=== PATIENT | female | born 1985 | race African-American/Black ===

== ENCOUNTER 2017-10-26 09:25 | Emergency (ER) | payer BC ==
--- NOTE | 2017-10-26 09:50 | ED ---
Lower Extremity - HPI Summary HPI Summary: Patient here with left ankle and foot pain, swelling and tingling of her lateral toes on this foot since last night. Reports she was playing basketball with her last night and as she returned to the ground from jumping up, she twisted her Lt foot and ankle. She's been elevating and icing with some relief of the ankle pain however she still has persistent foot pain with toe tingling. Denies numbness or weakness. No gross deformity to report. She reports history of injury in this lower extremity in the past however she does not recall the details (fracture of a bone somewhere). Admits she was wearing inappropriate sneakers to playing basketball - poor ankle support and high soft squishy sole of shoe. She declines any pain medication at this time. She is currently menstruating. - History of Current Complaint Chief Complaint: EDExtremityLower Stated Complaint: LT FOOT SWELLING Time Seen by Provider: 10/26/17 09:34 Hx Obtained From: Patient Pain Intensity: 4 - Allergies/Home Medications Allergies/Adverse Reactions: Allergies Allergy/AdvReac Type Severity Reaction Status Date / Time No Known Allergies Allergy Verified 06/09/16 12:12 PMH/Surg Hx/FS Hx/Imm Hx Previously Healthy: Yes Endocrine/Hematology History: Reports: Hx Thyroid Disease GI History: Reports: Hx Ulcer - Immunization History Date of Tetanus Vaccine: 09/10 Date of Influenza Vaccine: N Infectious Disease History: No Infectious Disease History: Denies: Traveled Outside the [place] in Last 30 Days - Family History Known Family History: Positive: Unknown, Other - denies fhx of gallbladder diseases - Social History Lives: With Family Alcohol Use: None Hx Substance Use: No Substance Use Type: Reports: None Hx Tobacco Use: No Smoking Status (MU): Never Smoked Tobacco Have You Smoked in the Last Year: No Review of Systems Constitutional: Negative Positive: no symptoms reported Positive: Arthralgia, Myalgia, Edema Skin: Negative Positive: Paresthesia. Negative: Weakness, Numbness Psychological: Normal All Other Systems Reviewed And Are Negative: Yes Physical Exam Triage Information Reviewed: Yes Vital Signs On Initial Exam: Initial Vitals Temp Pulse Resp BP Pulse Ox 98.9 F 59 18 113/70 99 10/26/17 09:28 10/26/17 09:28 10/26/17 09:28 10/26/17 09:28 10/26/17 09:28 Vital Signs Reviewed: Yes Appearance: Positive: Well-Appearing, No Pain Distress, Well-Nourished Skin: Positive: Warm, Skin Color Reflects Adequate Perfusion, Dry - no skin changes Eyes: Positive: Normal ENT: Positive: Hearing grossly normal Respiratory/Lung Sounds: Positive: Breath Sounds Present Cardiovascular: Positive: Pulses are Symmetrical in both Upper and Lower Extremities Musculoskeletal: Positive: Strength/ROM Intact - moving toes and ankle but is painful, Pain @ - pt reports most of pain is over dorsal foot - TTP here - no 5th MT tenderness; malleoli are NTTP however anterior ankle mortise if TTP; edema mild in comparison but subtly present along lateral aspect of dorsal foot Neurological: Positive: Sensory/Motor Intact - full sensation with palpation of toes effected by tingling, Alert, Oriented to Person Place, Time, CN Intact II- III Psychiatric: Positive: Normal Diagnostics - Vital Signs Vital Signs Temp Pulse Resp BP Pulse Ox 10/26/17 09:28 98.9 F 59 18 113/70 99 - Laboratory Lab Statement: Any lab studies that have been ordered have been reviewed, and results considered in the medical decision making process. Lower Extremity Course/Dx - Course Course Of Treatment: Patient's left ankle and foot x-rays are without acute findings. Suspect patient has strained dorsiflexion tendons and possibly sprained ligaments in the ankle and foot w/o deformity (no splint required). Advised rest, ice, compression with Frank wrap, elevation. She may also take ibuprofen and/or acetaminophen when necessary for pain. Provided with crutches to avoid weightbearing and advance as tolerated. She may follow-up with her PCP in 1-2 weeks if symptoms persist. If danger signs or symptoms present to return to the ED. - Diagnoses Provider Diagnoses: Left ankle sprain, Sprain of left foot Discharge - Discharge Plan Condition: Stable Disposition: HOME Patient Education Materials: Ankle Sprain (ED), Foot Sprain (ED), Crutch Instructions (ED) Forms: *Work Release Referrals: Denia Wilkinson MD [Primary Care Provider] - Additional Instructions: Rest, ice, compress with Frank wrap, elevate Avoid weightbearing by using crutches - you may advance weight-bearing as tolerated May take ibuprofen and/or acetaminophen as needed for pain - take with food Follow-up with PCP in one to 2 weeks if her cyst. *if he developed numbness weakness discoloration of skin acute swelling fevers, return to ED.
--- NOTE | 2017-10-26 10:24 | RAD ---
HISTORY: Left foot and ankle pain, trauma COMPARISONS: None VIEWS: 6, Frontal, lateral, and oblique views of the left foot and left ankle FINDINGS: BONE DENSITY: Normal. BONES: There is no displaced fracture. JOINTS: There is no arthropathy. ALIGNMENT: There is no dislocation. SOFT TISSUES: Unremarkable. OTHER FINDINGS: None. IMPRESSION: NO ACUTE OSSEOUS INJURY THE LEFT FOOT OR LEFT ANKLE. IF SYMPTOMS PERSIST, RECOMMEND REPEAT IMAGING.
[2017-10-26 11:24] VITALS: BP 96/57
== END 2017-10-26 11:05 | disposition home or self-care (01) ==
LOC: ED 09:25
DX: S93.402A Sprain of unspecified ligament of left ankle, initial encounter (principal); S93.602A Unspecified sprain of left foot, initial encounter; X50.1XXA Overexertion from prolonged static or awkward postures, initial encounter; Y93.67 Activity, basketball; Y92.9 Unspecified place or not applicable
CPT/HCPCS: 99282

== ENCOUNTER 2018-01-07 09:14 | Emergency (ER) | payer BC ==
--- NOTE | 2018-01-07 09:38 | ED ---
HPI Chest Pain - HPI Summary HPI Summary: 32-year-old female presents with chest discomfort today. 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 She states that she felt little bit dizzy. She states she felt a little bit tightness in her chest and felt like her heart was racing. She then developed SOB. She states she felt very sweaty and felt some tingling in her hands. She also had a tightness in her throat. She denies any rash. She denies any new products or taking anything she could be allergic too. She said in her chest is was a tightness and not a but that is normal for her. This has never happened before. She is nonsmoker. She denies any family history of heart disease. Currently she denies any pain she states she just feels weak. - History of Current Complaint Chief Complaint: EDChestPainROMI Time Seen by Provider: 01/07/18 09:19 Pain Intensity: 0 - Allergy/Home Medications Allergies/Adverse Reactions: Allergies Allergy/AdvReac Type Severity Reaction Status Date / Time No Known Allergies Allergy Verified 01/07/18 09:22 Home Medications: Home Medications Multivitamins/Minerals TAB* [Theragran/minerals TAB*] 1 tab PO DAILY 01/07/18 [ History Confirmed 01/07/18] PMH/Surg Hx/FS Hx/Imm Hx Endocrine/Hematology History: Reports: Hx Thyroid Disease Respiratory History: Denies: Hx Asthma GI History: Reports: Hx Ulcer - Immunization History Date of Tetanus Vaccine: 09/10 Date of Influenza Vaccine: N Infectious Disease History: Yes Infectious Disease History: Denies: Traveled Outside the [place] in Last 30 Days - Family History Known Family History: Positive: Unknown, Other - denies fhx of gallbladder diseases Negative: Cardiac Disease - Social History Alcohol Use: None Hx Substance Use: No Substance Use Type: Reports: None Hx Tobacco Use: No Smoking Status (MU): Never Smoked Tobacco Have You Smoked in the Last Year: No Review of Systems Negative: Fever Positive: Chest Pain Positive: Shortness Of Breath. Negative: Cough Positive: Nausea. Negative: Abdominal Pain Positive: Weakness All Other Systems Reviewed And Are Negative: Yes Physical Exam Triage Information Reviewed: Yes Vital Signs On Initial Exam: Initial Vitals Temp Pulse Resp BP Pulse Ox 98 F 63 69 103/62 99 01/07/18 09:20 01/07/18 09:20 01/07/18 09:20 01/07/18 09:20 01/07/18 09:20 Vital Signs Reviewed: Yes Appearance: Positive: Well-Appearing Skin: Positive: Warm, Dry Head/Face: Positive: Normal Head/Face Inspection Eyes: Positive: Normal, EOMI, RAY, Conjunctiva Clear ENT: Positive: Normal ENT inspection, Pharynx normal, TMs normal Respiratory/Lung Sounds: Positive: Clear to Auscultation, Breath Sounds Present Cardiovascular: Positive: Normal, RRR Abdomen Description: Positive: Nontender, Soft Bowel Sounds: Positive: Present Musculoskeletal: Positive: Normal Neurological: Positive: Normal Psychiatric: Positive: Anxious Diagnostics - Vital Signs Vital Signs Temp Pulse Resp BP Pulse Ox 01/07/18 09:23 97.6 F 57 15 85/23 100 01/07/18 09:20 98 F 63 69 103/62 99 - Laboratory Result Diagrams: 01/07/18 09:57 01/07/18 09:57 Lab Statement: Any lab studies that have been ordered have been reviewed, and results considered in the medical decision making process. - EKG No standard instances Cardiac Rate: Bradycardia EKG Rhythm: Sinus Bradycardia EKG Interpretation: sinus bradycardia EKG Comparison: No Significant Change Chest Pain Course/Dx - Course Course Of Treatment: 32-year-old female presents with chest discomfort today. 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 She states that she felt little bit dizzy. She states she felt a little bit tightness in her chest and felt like her heart was racing. She then developed SOB. She states she felt very sweaty and felt some tingling in her hands. She also had a tightness in her throat. She denies any rash. She denies any new products or taking anything she could be allergic too. She said in her chest is was a tightness and not a but that is normal for her. This has never happened before. She is nonsmoker. She denies any family history of heart disease. Currently she denies any pain she states she just feels weak. On exam lungs clear to auscultation. Heart regular rate and rhythm. EKG shows sinus bradycardia. troponin and d-dimer neg. symptoms seem most consistent with anxiety and patient appears anxious on exam. mg low so gave supplement. will have follow up with primary. patient understand and agrees with plan. - Chest Pain Differential Diagnosis/HQI/PQRI: Chest Wall, Pulmonary Embolism, Other: - anxiety - Diagnoses Provider Diagnoses: Chest pain Discharge - Sign-Out/Discharge Documenting (check all that apply): Discharge - Discharge Plan Condition: Good Disposition: HOME Patient Education Materials: Noncardiac Chest Pain (ED) Referrals: Denia Wilkinson MD [Primary Care Provider] - Additional Instructions: Take tyenlol or ibuprofen for pain pain Take deep breaths Follow up with primary within 5 days Return to ED if develop any new or worsening symptoms. - Billing Disposition and Condition Condition: GOOD Disposition: HOME
[2018-01-07 10:06] LABS: ABS Basophils 0 10^3/ul (0-0.2); ABS Eosinophils 0.1 10^3/ul (0-0.6); ABS Monocytes 0.5 10^3/ul (0-0.8); ABS Neutrophils 5.6 10^3/ul (1.5-7.7); ABS Nucleated RBC 0 10^3/ul; Eosinophil % 0.8 % (0-6); Hematocrit 38 % (35-47); Hemoglobin 12.8 g/dl (12.0-16.0); Lymphocyte % 24.2 % (25-47); Mean Corpuscular HGB Conc 34 g/dl (31-36); Mean Corpuscular Hemoglobin 30 pg (27-31); Mean Corpuscular Volume 90 fL (80-97); Mean Platelet Volume 8.5 um3 (7.4-10.4); Nucleated Red Blood Cells % 0.1; Platelet Count 184 10^3/ul (150-450); Red Blood Count 4.25 10^6/ul (4.0-5.4); Red Cell Distribution Width 14 % (10.5-15); White Blood Count 8.1 10^3/ul (3.5-10.8)
[2018-01-07 10:32] LABS: EGFR Non-African American 107.5 (>60)
[2018-01-07] MEDS ORDERED: Magnesium Oxide TAB* 400 MG PO ONE (10:36)
[2018-01-07 13:27] VITALS: BP 112/70
== END 2018-01-07 13:26 | disposition home or self-care (01) ==
LOC: ED 09:14
DX: R07.9 Chest pain, unspecified (principal); E07.9 Disorder of thyroid, unspecified
CPT/HCPCS: 36415; 80053; 83735; 84443; 84484; 84702; 85025; 85379; 93005; 99282

== ENCOUNTER 2019-03-27 22:58 | Emergency (ER) | payer BC ==
[2019-03-28] MEDS ORDERED: Ketorolac INJ* 30 MG/ML 1 ML VIAL IM ONE (00:58)
--- NOTE | 2019-03-28 01:36 | ED ---
Back Pain - HPI Summary HPI Summary: 33 year old female presents with back pain since morning. Pain started at her mid thoracic back and radiates to the front. No rash. pain is causing her to be a little bit of shortness of breath. No injury. No injury. No urinary symptoms. No loss of bowel or bladder. No pain or numbness into her legs. No saddle anesthesia. Has not taking anything for pain. - History of Current Complaint Chief Complaint: EDBackInjuryPain Stated Complaint: BACK PAIN PER PT Time Seen by Provider: 03/28/19 00:34 Pain Intensity: 6 - Allergies/Home Medications Allergies/Adverse Reactions: Allergies Allergy/AdvReac Type Severity Reaction Status Date / Time No Known Allergies Allergy Verified 03/27/19 23:01 PMH/Surg Hx/FS Hx/Imm Hx Endocrine/Hematology History: Reports: Hx Thyroid Disease Cardiovascular History: Denies: Hx Myocardial Infarction Respiratory History: Denies: Hx Asthma GI History: Reports: Hx Ulcer - Immunization History Date of Tetanus Vaccine: 09/10 Date of Influenza Vaccine: N Infectious Disease History: No Infectious Disease History: Denies: Traveled Outside the [place] in Last 30 Days - Family History Known Family History: Positive: Unknown, Other - denies fhx of gallbladder diseases Negative: Cardiac Disease - Social History Alcohol Use: None Hx Substance Use: No Substance Use Type: Reports: None Hx Tobacco Use: No Smoking Status (MU): Never Smoked Tobacco Have You Smoked in the Last Year: No Review of Systems Negative: Fever Negative: Chest Pain Negative: Shortness Of Breath Positive: Myalgia - back pain All Other Systems Reviewed And Are Negative: Yes Physical Exam Triage Information Reviewed: Yes Vital Signs On Initial Exam: Initial Vitals Temp Pulse Resp BP Pulse Ox 99.0 F 79 18 119/97 93 03/27/19 23:00 03/27/19 23:00 03/27/19 23:00 03/27/19 23:00 03/27/19 23:00 Vital Signs Reviewed: Yes Appearance: Positive: Well-Appearing Skin: Positive: Warm, Dry Head/Face: Positive: Normal Head/Face Inspection Eyes: Positive: Normal, Conjunctiva Clear ENT: Positive: Pharynx normal Respiratory/Lung Sounds: Positive: Clear to Auscultation, Breath Sounds Present Cardiovascular: Positive: Normal, RRR Musculoskeletal: Positive: Strength/ROM Intact - back, Other - tenderness on right side of thoracic back, 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 - Radiology back Radiology Interpretation Completed By: ED Physician Summary of Radiographic Findings: no fracture Re-Evaluation - Re-Evaluation First Eval Re-Evaluation Time: 01:54 Change: Unchanged Comment: pain still present Back Pain Course/Dx - Course Course Of Treatment: 33 year old female presents with back pain since morning. Pain started at her mid thoracic back and radiates to the front. No rash. pain is causing her to be a little bit of shortness of breath. No injury. No injury. No urinary symptoms. No loss of bowel or bladder. No pain or numbness into her legs. No saddle anesthesia. Has not taking anything for pain. On exam tenderness over right side of thoracic back. X-ray no fracture. We'll place on short muscle relaxers. told if develop rash to return to evaluate for shingles. Patient understands agrees with plan. - Diagnoses Differential Diagnosis/HQI/PQRI: Positive: Herniated Disc, Strain, Other - shingles Provider Diagnoses: Back pain Discharge - Sign-Out/Discharge Documenting (check all that apply): Patient Departure Patient Received Moderate/Deep Sedation with Procedure: No - Discharge Plan Condition: Good Disposition: HOME Prescriptions: Cyclobenzaprine TAB* [Flexeril 10 MG TAB*] 10 mg PO TID PRN #21 tab PRN Reason: Pain Patient Education Materials: Back Pain (ED) Referrals: Denia Wilkinson MD [Primary Care Provider] - Additional Instructions: Take muscle relaxers three times a day Use ibuprofen or Tylenol for pain every 6 hours ice/heat area, move as much as possible Follow up with primary within 5 days Return to ED if develop any rash or any new or worsening symptoms - Billing Disposition and Condition Condition: GOOD Disposition: Home
[2019-03-28] MEDS ORDERED: Cyclobenzaprine TAB* 10 MG PO ONE (01:55)
[2019-03-28 02:13] VITALS: BP 112/62
== END 2019-03-28 02:12 | disposition home or self-care (01) ==
LOC: ED 22:58
DX: M54.9 Dorsalgia, unspecified (principal)
CPT/HCPCS: 72070; 96372; 99282; A9270-GY; J1885